=== PATIENT | female | born 1980 | race Caucasian/White ===

== ENCOUNTER 2022-04-22 20:54 | Inpatient (IN) | payer MEDICAID ==
[~2022-04-22] VITALS: Ht 152.4 cm; Wt 73.9 kg
[2022-04-22] MEDS ORDERED: LACTATED RINGERS 500 ML IV SCH (21:15)
[2022-04-22] MEDS ORDERED: LACTATED RINGERS 1,000 ML IV SCH (21:15)
[2022-04-22 21:41] LABS: BASOPHILS % (AUTO) 0.5 % (0.0-2.0); EOSINOPHILS # (AUTO) 0.1 K/uL (0-0.4); EOSINOPHILS % (AUTO) 0.9 % (0.0-4.0); HEMOGLOBIN 12.4 g/dL (12.0-16.0); LYMPHOCYTES # (AUTO) 1.7 K/uL (2.5-16.5); MEAN CORPUSCULAR HEMOGLOBIN 31 pg (27-31); MEAN CORPUSCULAR HGB CONC 35 g/dL (33-37); MEAN CORPUSCULAR VOLUME 90.3 fL (80-94); MONOCYTES # (AUTO) 0.6 K/uL (0.8-1.0); MONOCYTES % (AUTO) 8.3 % (1.7-9.3); NEUTROPHILS # (AUTO) 4.7 K/uL (1.8-7.7); NEUTROPHILS % (AUTO) 66.3 % (42.2-75.2); PLATELET COUNT (AUTO) 200 K/uL (140-450); RED BLOOD CELL COUNT(AUTO) 3.98 MIL/uL (4.20-5.40); RED CELL DISTRIBUTION WIDTH 13.5 % (11.6-13.7); WHITE BLOOD COUNT (AUTO) 7.1 K/uL (4.8-10.8)
[2022-04-22 21:47] LABS: APPEARANCE,URINE CLEAR (CLEAR); BILIRUBIN,URINE NEGATIVE (NEGATIVE); BLOOD, URINE 2+ (NEGATIVE); COLOR,URINE YELLOW (YELLOW); LEUKOCYTE ESTERASE ,URINE NEGATIVE (NEGATIVE); NITRITE, URINE NEGATIVE (NEGATIVE); PH,URINE 6.5 (5.0-9.0); UGLUCOSE NEGATIVE (NEGATIVE)
[2022-04-22 22:05] LABS: RBC,URINE 11-20 (MOD) /HPF (0-5)
[2022-04-22 22:08] LABS: ALBUMIN 2.2 g/dL (3.4-5.0); ANION GAP 15.4 (8-16); CARBON DIOXIDE 20.4 mmol/L (21-32); CREATININE 0.6 mg/dL (0.6-1.3); POTASSIUM 3.8 mmol/L (3.5-5.1); TOTAL BILIRUBIN 0.3 mg/dL (0.0-1.0)
[2022-04-22 22:13] VITALS: BP 119/68
[2022-04-22 22:22] LABS: PROTHROMBIN TIME 9.3 secs (10.8-13.4)
[2022-04-23] MEDS ORDERED: OXYTOCIN 20 UNITS in LACTATED RINGERS 1,000 ML IV SCH (00:10)
[2022-04-23] MEDS ORDERED: OXYTOCIN 20 UNITS/LR PREMIX 1,000 ML IV ONE (00:17)
[2022-04-23] MEDS ORDERED: ONDANSETRON 4 MG/2 ML VIAL IVP PRN (00:45)
[2022-04-23] MEDS ORDERED: MORPHINE SULFATE 5 MG/ML VIAL IVP PRN (00:45)
[2022-04-23] MEDS ORDERED: LIDOCAINE 1% 500 MG/50 ML VIAL ONE (08:54)
--- NOTE | 2022-04-23 10:38 | NUR ---
PATIENT HAS BEEN SCREENED AND CATEGORIZED LOW NUTRITION RISK. PATIENT WILL BE SEEN WITHIN 7 DAYS OF ADMISSION. 04/29/22 REVIEWED BY JUSTYNA GOSS RD
[2022-04-23] MEDS ORDERED: DOCUSATE SODIUM 100 MG GELCAP PO PRN (14:50)
[2022-04-23] MEDS ORDERED: METHYLERGONOVINE 0.2 MG TAB PO PRN (14:50)
[2022-04-23] MEDS ORDERED: IBUPROFEN 600 MG TAB PO PRN (14:50)
[2022-04-23] MEDS ORDERED: IBUPROFEN 800 MG TAB PO PRN (14:50)
[2022-04-23] MEDS ORDERED: METHYLERGONOVINE 0.2 MG/ML AMP IM PRN (14:50)
[2022-04-23] MEDS ORDERED: BENZOCAINE/MENTHOL 20%-0.5% 60 GM CAN TP PRN (14:50)
[2022-04-23] MEDS ORDERED: bisacodyL 5 MG TABEC PO PRN (14:50)
[2022-04-23] MEDS ORDERED: MEASLES, MUMPS, AND RUBELLA 1 VIAL SQVAC ONE (14:50)
[2022-04-23] MEDS ORDERED: OXYTOCIN 10 UNITS/ML VIAL IM PRN (14:50)
[2022-04-23] MEDS ORDERED: SIMETHICONE 80 MG TAB.CHEW PO PRN (14:50)
[2022-04-23] MEDS ORDERED: MEASLES, MUMPS, AND RUBELLA 1 VIAL SQVAC SCH (15:00)
[2022-04-24] MEDS ORDERED: LACTATED RINGERS 1,000 ML IV SCH (07:50)
[2022-04-24 08:59] LABS: BASOPHILS % (AUTO) 0.4 % (0.0-2.0); EOSINOPHILS # (AUTO) 0.1 K/uL (0-0.4); EOSINOPHILS % (AUTO) 0.7 % (0.0-4.0); HEMATOCRIT 35.3 % (36-48); HEMOGLOBIN 11.8 g/dL (12.0-16.0); LYMPHOCYTES # (AUTO) 1.8 K/uL (2.5-16.5); LYMPHOCYTES % (AUTO) 19.8 % (20.5-51.1); MEAN CORPUSCULAR HEMOGLOBIN 31 pg (27-31); MEAN CORPUSCULAR HGB CONC 34 g/dL (33-37); MEAN CORPUSCULAR VOLUME 92.2 fL (80-94); MONOCYTES # (AUTO) 0.5 K/uL (0.8-1.0); MONOCYTES % (AUTO) 5.6 % (1.7-9.3); NEUTROPHILS # (AUTO) 6.7 K/uL (1.8-7.7); NEUTROPHILS % (AUTO) 73.5 % (42.2-75.2); PLATELET COUNT (AUTO) 172 K/uL (140-450); RED BLOOD CELL COUNT(AUTO) 3.82 MIL/uL (4.20-5.40); RED CELL DISTRIBUTION WIDTH 13.4 % (11.6-13.7); WHITE BLOOD COUNT (AUTO) 9.1 K/uL (4.8-10.8)
[2022-04-24 09:17] LABS: ALBUMIN 1.9 g/dL (3.4-5.0); ANION GAP 14.9 (8-16); CARBON DIOXIDE 21.9 mmol/L (21-32); CREATININE 0.6 mg/dL (0.6-1.3); POTASSIUM 3.8 mmol/L (3.5-5.1); TOTAL BILIRUBIN 0.2 mg/dL (0.0-1.0)
[2022-04-24 09:42] LABS: PROTHROMBIN TIME 9.1 secs (10.8-13.4)
== END 2022-04-24 17:15 | disposition home or self-care (01) | DRG 560 ==
LOC: MLD 20:54 → OBSVTOIN 21:56 → MFCC 04-23 10:40
PROVIDERS: ADMIT Obstetrics & Gynecology; ATTEND Obstetrics & Gynecology
PROC: 10E0XZZ Delivery of Products of Conception, External Approach (ICD-10-PCS; principal; 2022-04-23)
DX: O36.8130 Decreased fetal movements, third trimester, not applicable or unspecified (principal); Z37.0 Single live birth; O71.82 Other specified trauma to perineum and vulva; Z20.822 Contact with and (suspected) exposure to COVID-19; Z80.41 Family history of malignant neoplasm of ovary; Z91.040 Latex allergy status; Z3A.39 39 weeks gestation of pregnancy
CPT/HCPCS: 36415; 59409; 76815; 80053; 81001; 85025; 85610; 85730; 86592; 86886; 86900; 86901; 87086; J0690; J2001; J2590; J7060; Q0092